=== PATIENT | male | born 1980 | race Caucasian/White ===

== ENCOUNTER 2016-12-05 11:05 | Emergency (ER) | payer OTHER | END 2016-12-05 13:47 | disposition home or self-care (01) | LOC: ER1 11:05 | DX: S16.1XXA Strain of muscle, fascia and tendon at neck level, initial encounter (principal); S39.012A Strain of muscle, fascia and tendon of lower back, initial encounter; I10 Essential (primary) hypertension; F17.210 Nicotine dependence, cigarettes, uncomplicated; Z88.0 Allergy status to penicillin; Z79.899 Other long term (current) drug therapy; V89.2XXA Person injured in unspecified motor-vehicle accident, traffic, initial encounter; Y93.89 Activity, other specified; Y92.410 Unspecified street and highway as the place of occurrence of the external cause | CPT/HCPCS: 72125; 72131; 99284 ==

== ENCOUNTER 2021-09-27 14:27 | Emergency (ER) | payer OTHER ==
[~2021-09-27 14:27] MED LIST: FLAGYL500 MG PO; METRONIDAZOLE500 MG PO; PROAIR HFA8.5 GM INH
[2021-09-27 15:14] LABS: HEMOGLOBIN 15.6 gm/dl (14.0-17.5); RED BLOOD COUNT 4.83 M/UL (4.20-5.50); WHITE BLOOD COUNT 9.2 K/UL (4.5-11.0)
[2021-09-27 15:42] LABS: BUN/CREATININE RATIO 13 (0-10)
== END 2021-09-27 19:55 | disposition home or self-care (01) ==
LOC: ER1 14:27
PROVIDERS: Student in an Organized Health Care Education/Training Program
DX: R07.89 Other chest pain (principal); Z20.822 Contact with and (suspected) exposure to COVID-19; F19.10 Other psychoactive substance abuse, uncomplicated; I10 Essential (primary) hypertension; J45.909 Unspecified asthma, uncomplicated; F17.210 Nicotine dependence, cigarettes, uncomplicated
CPT/HCPCS: 71045; 80053; 80307; 81001; 82550; 82553; 83690; 83735; 84484; 85025; 93005; 99285; G0480; J0696; U0002